=== PATIENT | female | born 1950 | race Caucasian/White ===

== ENCOUNTER 2017-02-10 08:14 | Emergency (ER) | payer MEDICAID, OTHER ==
[~2017-02-10] VITALS: Ht 172.7 cm; Wt 95.0 kg
[~2017-02-10 08:14] MED LIST: FLUT1SPR5 EACH NARE; IBUP1TAB7 PO; PANT40TA3 PO; SERT-132 PO; [UNRECOGNIZED DRUG - CODE] TOPICAL
[2017-02-10 08:18] VITALS: BP 162/66; PULSE 61; RESP 16; TEMP 97.7; O2SAT 100
[2017-02-10] MEDS ORDERED: KETOROLAC TROMETHAMINE 60 MG/2 ML (IM) VIAL IM ONE (09:00)
--- NOTE | 2017-02-10 09:03 | PD ---
HPI Chief Complaint: Injury Time Seen by Provider: 08:36 Travel History International Travel<30 days: No Contact w/Intl Traveler<30days: No Traveled to known affect area: No History of Present Illness HPI Patient is a 66-year-old female who presents emerged department for a lump over her left shoulder as well as left shoulder pain. The patient states that yesterday she was walking carrying something heavy and did not see her granddaughter sitting in front of the [place] tree, she tripped over her and landed against a wall on her left shoulder. Denies any head injury neck injury blood thinner use. Denies any loss of consciousness. Denies any elbow pain and wrist pain. States some mild numbness and tingling in her left fingers, the pain radiates down her left arm. States the pain is mild, left shoulder, radiates down her arm, associated signs symptoms as above. PFSH Past Medical History Autoimmune Disease: Yes (MS) Blood Disorders: No Anxiety: Yes Heart Rhythm Problems: No Cancer: No Cardiac Catheterization: No Cardiovascular Problems: Yes High Cholesterol: No Chest Pain: Yes (PRIOR TO THIS ADMISSION) Congestive Heart Failure: No Diabetes: No Diminished Hearing: No Endocrine: No Genitourinary: No Hypertension: Yes Immune Disorder: Yes (MS) Musculoskeletal: Yes (MS) Neurologic: No Psychiatric: Yes Reproductive: No Respiratory: No Thyroid Disease: No ?: Not Menopausal: Yes Past Surgical History Cholecystectomy: Yes Coronary Artery Bypass Graft: No Social History Alcohol Use: No Tobacco Use: No Substance Use: No Allergies-Medications (Allergen,Severity, Reaction): Coded Allergies: Sulfa (Sulfonamide Antibiotics) (Unverified Allergy, Severe, Anaphylaxis, 02/17/17) carbamazepine (Unverified Allergy, Unknown, 02/17/17) REACTION [facility] Reported Meds & Prescriptions Reported Meds & Active Scripts Active Ambien (Zolpidem Tartrate) 5 Mg Tab 5 Mg PO HS PRN Ibuprofen 800 Mg Tab 800 Mg PO Q6HR PRN 30 Days Flonase Nasal Oto (Fluticasone Nasal Oto) 50 Mcg/Act Oto 50 Mcg EACH NARE BID Retin-A Topical 0.025% (Tretinoin) 0.025 % Gel 1 Applic TOPICAL BID Reported Percocet (Oxycodone-Acetaminophen) 5-325 mg Tab 1 Tab PO Q4H PRN Omeprazole 20 Mg Tab 20 Mg PO DAILY Review of Systems Except as stated in HPI: all other systems reviewed are Neg Physical Exam Narrative GENERAL: Well-nourished, well-developed patient. SKIN: Focused skin assessment warm/dry. HEAD: Normocephalic. Atraumatic EYES: No scleral icterus. No injection or drainage. NECK: Supple, trachea midline. No JVD or lymphadenopathy. CARDIOVASCULAR: Regular rate and rhythm without murmurs, gallops, or rubs. RESPIRATORY: Breath sounds equal bilaterally. No accessory muscle use. GASTROINTESTINAL: Abdomen soft, non-tender, nondistended. MUSCULOSKELETAL: Mild tenderness over the distal clavicle, minimal tenting the skin, the shoulder appears to be seated properly, no tenderness on the humerus elbow forearm or hand. Pulses motor and sensory intact distally in all 4 extremities, compartments are soft. No midline CT or L-spine tenderness. BACK: Nontender without obvious deformity. No CVA tenderness. Data Data Last Documented VS Orders Orders Ketorolac Inj (Toradol Inj) (02/10/17 09:00) Shoulder, Complete (>2vws) (02/10/17 ) Splint Or Brace Apply/Monitor (02/10/17 09:36) Ed Discharge Order (02/10/17 09:46) MDM Medical Decision Making Medical Screen Exam Complete: Yes Emergency Medical Condition: Yes Differential Diagnosis Clavicle fracture, scapular fracture, acromioclavicular separation, shoulder strain. Narrative Course Patient roomed in emergency department, she does have small nodule anterior to the glenohumeral joint, fairly firm, mobile, could be a lymph node or could be small subcutaneous hematoma from injury. Mild ecchymosis around the shoulder proper. X-rays do reveal an avulsion fracture of the acromion process of the scapula on the left. Will be placed in a sling, follow-up with orthopedics. She is stable for discharge. Discussed need for further workup of this lump if does not resolve including biopsy in the next few weeks, patient instructed to discuss this with her primary care physician. Diagnosis Primary Impression: Fracture of acromion of scapula Qualified Codes: S42.125A - Nondisplaced fracture of acromial process, left shoulder, initial encounter for closed fracture Referrals: Rafael Van MD Patient Instructions: General Instructions, How to Use a Sling (GEN), RICE Therapy (ED) Disposition: 01 DISCHARGE HOME Condition: Stable Bucky Rivera MD Feb 10, 2017 09:03
[2017-02-10] MEDS ORDERED: AMBI5TAB PO (09:22)
[2017-02-10] MEDS ORDERED: OMEP20TA93 PO (09:22)
[2017-02-10] MEDS ORDERED: PERC5TAB12 PO (09:22)
--- NOTE | 2017-02-10 09:29 | RADRPT ---
EXAM DATE/TIME: 02/10/2017 09:11 [facility] COMPARISON: No previous studies available for comparison. INDICATIONS : Left shoulder pain post falling against wall last night. MEDICAL HISTORY : None. SURGICAL HISTORY : None. ENCOUNTER: Initial ACUITY: 1 day PAIN SCORE: 8/10 LOCATION: Left upper extremity FINDINGS: Multiple view examination of the left shoulder demonstrates a nondisplaced fracture along the intra-l ateral margin of the acromion. Acromioclavicular and glenohumeral joints are intact. There are no additional suspected fractures. Th ere is no evidence of dislocation. Mild arthropathy of the glenohumeral joint is noted. Spurring is seen along the inferior margin of th e glenoid fossa. CONCLUSION: 1. Nondisplaced small avulsion fracture along the lateral margin of the acromion. 2. Mild glenohumeral arthropathy. 3. Otherwise intact left shoulder. Edy Mitchell MD on February 10, 2017 at 9:24 Board Certified Radiologist. This report was verified electronically.
[2017-02-17] MEDS ORDERED: IBUP1TAB7 PO (09:28)
[2017-02-17] MEDS ORDERED: AMBI5TAB PO (09:28)
[2017-02-19] MEDS ORDERED: DICL1GEL7 TOPICAL (11:38)
== END 2017-02-10 09:54 | disposition home or self-care (01) ==
LOC: PHEFT 08:14
DX: S42.125A Nondisplaced fracture of acromial process, left shoulder, initial encounter for closed fracture (principal); G35 Multiple sclerosis; F41.9 Anxiety disorder, unspecified; I10 Essential (primary) hypertension; W01.0XXA Fall on same level from slipping, tripping and stumbling without subsequent striking against object, initial encounter; Z79.899 Other long term (current) drug therapy; Z88.2 Allergy status to sulfonamides; Z88.8 Allergy status to other drugs, medicaments and biological substances
CPT/HCPCS: 73030; 96372; 99284; J1885

== ENCOUNTER 2017-02-24 12:03 | Emergency (ER) | payer MEDICAID ==
[~2017-02-24] VITALS: Ht 172.7 cm; Wt 96.8 kg
[~2017-02-24 12:03] MED LIST changes: +AMBI5TAB PO; +DICL1GEL7 TOPICAL; +OMEP20TA93 PO; -PANT40TA3 PO; +PERC5TAB12 PO; -SERT-132 PO
[2017-02-24 12:15] VITALS: BP 150/75; PULSE 66; RESP 18; TEMP 98; O2SAT 98
[2017-02-24] MEDS ORDERED: PROPARACAINE HCL 0.5% OPHT SOLN 15 ML BTL RIGHT EYE ONE (12:15)
[2017-02-24] MEDS ORDERED: OMEP20TA93 PO (12:19)
--- NOTE | 2017-02-24 13:25 | PD ---
HPI Chief Complaint: Eye Problems/Injury Time Seen by Provider: 12:10 Travel History International Travel<30 days: No Contact w/Intl Traveler<30days: No Traveled to known affect area: No History of Present Illness HPI This 66-year-old female who was leaning over the sink cleaning a small glass object. She dropped the object and the glass broke. She feels like a piece might have gone into her eye. She had irritation of the eye. Her vision has not been affected. PFSH Past Medical History Autoimmune Disease: Yes (MS) Blood Disorders: No Anxiety: Yes Heart Rhythm Problems: No Cancer: No Cardiac Catheterization: No Cardiovascular Problems: Yes High Cholesterol: No Chest Pain: Yes Congestive Heart Failure: No Diabetes: No Diminished Hearing: No Endocrine: No GERD: Yes Genitourinary: No Hypertension: Yes Immune Disorder: Yes (MS) Musculoskeletal: Yes (MS) Neurologic: No Psychiatric: Yes Reproductive: No Respiratory: No Thyroid Disease: No Tetanus Vaccination: < 5 Years ?: Not Menopausal: Yes Past Surgical History Cholecystectomy: Yes Coronary Artery Bypass Graft: No Other Surgery: Yes Family History Family Myocardial Infarction: Yes Social History Alcohol Use: No Tobacco Use: No Substance Use: No Allergies-Medications (Allergen,Severity, Reaction): Coded Allergies: Sulfa (Sulfonamide Antibiotics) (Unverified Allergy, Severe, Anaphylaxis, 02/19/17) carbamazepine (Unverified Allergy, Unknown, UNKNOWN, 02/24/17) REACTION [facility] Reported Meds & Prescriptions Reported Meds & Active Scripts Active Reported Omeprazole 20 Mg Tab 20 Mg PO DAILY Review of Systems General / Constitutional: No: Fever, Chills Eyes: Positive: Foreign Body Sensation, No: Diploplia, Blurred Vision HENT: No: Headaches Cardiovascular: No: Chest Pain or Discomfort, Palpitations Respiratory: No: Cough, Shortness of Breath Physical Exam Narrative GENERAL: Well-developed female SKIN: Focused skin assessment warm/dry. HEAD: Atraumatic. Normocephalic. EYES: Pupils equal and round. No scleral icterus. No injection or drainage. There is a conjunctival hemorrhage in the lateral aspect of the right eye. I do not see a foreign body or disruption of the conjunctiva. The anterior chamber is clear. Funduscopic exam normal. Fluorescein stain was done and there is no defect be lysed in the cornea ENT: No nasal bleeding or discharge. Mucous membranes pink and moist. NECK: Trachea midline. No JVD. . MUSCULOSKELETAL: No obvious deformities. No clubbing. No cyanosis. No edema. NEUROLOGICAL: Awake and alert. No obvious cranial nerve deficits. Motor grossly within normal limits. Normal speech. PSYCHIATRIC: Appropriate mood and affect; insight and judgment normal. Data Data Orders Orders Proparacaine 0.5% Opth Soln (Alcaine 0.5 (02/24/17 12:15) MDM Medical Decision Making Medical Screen Exam Complete: Yes Emergency Medical Condition: Yes Medical Record Reviewed: Yes Differential Diagnosis Differential includes subconjunctival hemorrhage, foreign body, Narrative Course Stain is negative for corneal abrasion I don't see a foreign body. Patient is stable for discharge. There is a conjunctival hemorrhage Diagnosis Primary Impression: Conjunctival hemorrhage, right eye Patient Instructions: General Instructions Additional Instructions: Return as needed, follow up with leasing specialist Disposition: 01 DISCHARGE HOME Condition: Stable Sage Redding MD Feb 24, 2017 13:24
[2017-02-24 13:44] VITALS: BP 147/74
== END 2017-02-24 13:46 | disposition home or self-care (01) ==
LOC: PHEFT 12:03
DX: H11.31 Conjunctival hemorrhage, right eye (principal); I10 Essential (primary) hypertension; K21.9 Gastro-esophageal reflux disease without esophagitis; G35 Multiple sclerosis; Z86.59 Personal history of other mental and behavioral disorders; Z86.79 Personal history of other diseases of the circulatory system
CPT/HCPCS: 99283